=== PATIENT | male | born 1965 | race Caucasian/White ===

== ENCOUNTER 2017-11-13 18:05 | Emergency (ER) | payer SELFPAY ==
[~2017-11-13] VITALS: Ht 165.1 cm; Wt 61.2 kg
--- OUTSIDE RECORDS SUMMARY | 2017-11-13 18:08 | XMS REPORT ---
Author Author Admin, [place] Organization [facility] Address Unknown Phone Unavailable Allergies, Adverse Reactions, Alerts Allergy Name Reaction Description Start Date Severity Status Provider CODEINE SE: vomiting; itching Mild Active Carlo Carter [employer] Conditions or Problems Problem Name Problem Code Onset Date Status Entry Date Provider Comment Standard Description Annotate Hand pain, bilateral 729.5 Active Carlo Oswalds [employer] Pain in limb Cigarette smoker 305.1 Active Carlo Oswalds [employer] Tobacco use disorder 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 Carmen Phelan DO Unspecified secondary syphilis HIV infection 042 Active Carlo Carter [employer] Human immunodeficiency virus [HIV] disease HLA B5701 negative Screening for colon cancer ICD-V76.51 Inactive Carlo Carter [employer] Vaccination against influenza ICD-V04.81 Inactive Carlo Carter [employer] Furuncle ICD-680.9 Inactive Carlo Carter [employer] 2016 Vaccination for strep pneumonia with pneumovax ICD-V03.82 Inactive Carlo Carter [employer] Peripheral neuropathy ICD-356.9 Inactive Carlo Carter [employer] SCREENING EXAMINATION FOR VENEREAL DISEASE ICD-V74.5 Inactive Carlo Carter [employer] Vaccination for strep pneumonia with Prevnar 13 ICD-V03.82 02/09 Inactive Carlo Carter [employer] Vaccination for viral hepatitis A ICD-V05.3 Inactive Carlo Carter [employer] Oral ulcer ICD-528.9 Inactive Carlo Carter [employer] Screening for colon cancer V76.51 Resolved Carlo Carter [employer] Screening for malignant neoplasms of colon Vaccination against influenza V04.81 Resolved Carlo Carter [employer] Need for prophylactic vaccination and inoculation against influenza Furuncle 680.9 Resolved Carlo Carter [employer] Carbuncle and furuncle of unspecified site right posterior distal calf Vaccination for strep pneumonia with pneumovax V03.82 Resolved Carlo Carter [employer] Need for prophylactic vaccination against Streptococcus pneumoniae [pneumococcus] Peripheral neuropathy 356.9 Resolved Carlo Carter [employer] Unspecified hereditary and idiopathic peripheral neuropathy SCREENING EXAMINATION FOR VENEREAL DISEASE V74.5 Resolved 02/09 Carlo Carter [employer] Screening examination for venereal disease Vaccination for strep pneumonia with Prevnar 13 V03.82 Resolved Carlo Carter [employer] Need for prophylactic vaccination against Streptococcus pneumoniae [pneumococcus] Vaccination for viral hepatitis A V05.3 Resolved Carlo Carter [employer] Need for prophylactic vaccination and inoculation against viral hepatitis Oral ulcer 528.9 Resolved Carlo Carter [employer] Other and unspecified diseases of the oral soft tissues Medication List Medication Instructions Start Date Stop Date Generic Name NDC Status Provider Patient Instruction TRIUMEQ 600-50-300 MG ORAL TABLET Take one tablet by mouth once daily [id number] Active Carlo Carter [employer] Active BACTRIM DS 800-160 MG ORAL TABLET 1 tab by mouth twice a day for 1 week 08/15 BACTRIM DS 800-160 MG ORAL TABLET 231585 TRIMETHOPRIM- SULFAMETHOXAZOLE Inactive DOXYCYCLINE HYCLATE 100 MG ORAL CAPSULE 1 by mouth twice a day for 1 week DOXYCYCLINE HYCLATE 100 MG ORAL CAPSULE 7827029 DOXYCYCLINE HYCLATE Inactive NICOTINE 21-14-7 MG/24HR TRANSDERMAL KIT NICOTINE 21-14-7 MG/24HR TRANSDERMAL KIT 527213 NICOTINE Inactive GABAPENTIN 100 MG ORAL CAPSULE Take one capsule by mouth every eight hours GABAPENTIN 100 MG ORAL CAPSULE 711148 GABAPENTIN Inactive DOXYCYCLINE HYCLATE 100 MG ORAL CAPSULE 1 by mouth twice a day DOXYCYCLINE HYCLATE 100 MG ORAL CAPSULE 5482817 DOXYCYCLINE HYCLATE Inactive VALTREX 1 GM ORAL TABLET 1 by mouth 3 times a day for 7 days 2015 VALTREX 1 GM ORAL TABLET 917831 VALACYCLOVIR HCL Inactive BACTRIM DS 800-160 MG ORAL TABLET 1 tab by mouth twice a day for 1 week 08/15 TRIMETHOPRIM-SULFAMETHOXAZOLE 02930012152 No Longer Active Carlo Carter [employer] Active DOXYCYCLINE HYCLATE 100 MG ORAL CAPSULE 1 by mouth twice a day for 1 week DOXYCYCLINE HYCLATE 59235238435 No Longer Active Carlo Carter [employer] Active NICOTINE 21-14-7 MG/24HR TRANSDERMAL KIT NICOTINE 26525350019 No Longer Active Carlo Carter [employer] Active GABAPENTIN 100 MG ORAL CAPSULE Take one capsule by mouth every eight hours GABAPENTIN 06707865340 No Longer Active Carlo Carter [employer] Active DOXYCYCLINE HYCLATE 100 MG ORAL CAPSULE 1 by mouth twice a day DOXYCYCLINE HYCLATE 24978059920 No Longer Active Carmen Phelan DO Active VALTREX 1 GM ORAL TABLET 1 by mouth 3 times a day for 7 days 2015 VALACYCLOVIR HCL 76179784560 No Longer Active Carlo Carter [employer] Active Immunizations Vaccine Administration Date Value Standard Description influenza immunization (Flu Vax) has been administered given influenza virus vaccine, unspecified formulation hepatitis A immunization #2 given hepatitis A vaccine, unspecified formulation pneumococcal immunization administered given pneumococcal polysaccharide vaccine, 23 valent hepatitis A immunization #1 given hepatitis A vaccine, unspecified formulation PEDIATRIC PNEUMOCOCCAL VACCINE ([id number]) #1 given pneumococcal conjugate vaccine, 13 valent Vital Signs Date Name Value Unit Range Description blood pressure, diastolic 80 mm[Hg] BP zamudio blood pressure, systolic 130 mm[Hg] BP sys height E&M 66 [in_us] Bdy height pulse rate E&M 76 /min Heart rate respiratory rate E&M 16 /min Resp rate temperature E&M 97.8 [degF] Body temperature weight E&M 133 [lb_av] Weight Measured blood pressure, diastolic 86 mm[Hg] BP zamudio blood pressure, systolic 124 mm[Hg] BP sys height E&M 66 [in_us] Bdy height pulse rate E&M 78 /min Heart rate respiratory rate E&M 16 /min Resp rate temperature E&M 98.6 [degF] Body temperature weight E&M 133.13 [lb_av] Weight Measured blood pressure, diastolic 89 mm[Hg] BP zamudio blood pressure, systolic 138 mm[Hg] BP sys height E&M 66 [in_us] Bdy height pulse rate E&M 103 /min Heart rate temperature E&M 98.3 [degF] Body temperature weight E&M 135 [lb_av] Weight Measured Diagnostic Results Date Name Value Unit Range Description Lab Report: CD4/CD8 Ratio Profile, Comp. Metabolic Panel (14), Lipid Beckman ... - Serology hepatitis C antibody, serum <0.1 0.0-0.9 Lab Report: CD4/CD8 Ratio Profile, Comp. Metabolic Panel (14), RNA, Real ... - Hematology lymphocyte count, blood, automated 2.2 X10E3/UL 10*3/mm3 0.7- 3.1 Lab Report: COMPREHENSIVE METABOLIC PANEL, LYMPHOCYTE SUBSET PANEL 4, CB ... - Hematology mean platelet volume 9.1 fL 7.5-12.5 Lab Report: CD4/CD8 Ratio Profile, Comp. Metabolic Panel (14), RNA, Real ... - Chemistry urea nitrogen, blood 17 mg/dL 6-24 Lab Report: CD4/CD8 Ratio Profile, Comp. Metabolic Panel (14), RNA, Real ... - Hematology T-helper cells (CD4) as percent of blood lymphocytes 48.0 % 30.8 -58.5 Lab Report: CD4/CD8 Ratio Profile, Comp. Metabolic Panel (14), RNA, Real ... - Serology HIV-1RNA, serum, by PCR, quantitative 40 {Copies}/mL Lab Report: CD4/CD8 Ratio Profile, Comp. Metabolic Panel (14), RNA, Real ... - Chemistry creatinine, serum 1.05 mg/dL 0.76-1.27 chloride, serum 100 mmol/L 96-106 Lab Report: CD4/CD8 Ratio Profile, Comp. Metabolic Panel (14), RNA, Real ... - Hematology mean corpuscular volume, RBC 88 fL 79-97 Lab Report: COMPREHENSIVE METABOLIC PANEL, LYMPHOCYTE SUBSET PANEL 4, CB ... - Chemistry lymphocytes, absolute 2142 CELLS/UL 10*3/uL 850-3900 Lab Report: CD4/CD8 Ratio Profile, Comp. Metabolic Panel (14), Lipid Beckman ... - Chemistry triglyceride, serum, fasting 142 mg/dL 0-149 Lab Report: CD4/CD8 Ratio Profile, Comp. Metabolic Panel (14), RNA, Real ... - Hematology erythrocyte (RBC) count 4.39 X10E6/UL 10*6/mm3 4.14-5.80 Lab Report: CD4/CD8 Ratio Profile, Comp. Metabolic Panel (14), RNA, Real ... - Chemistry Estimated Glomerular Filtration Rate (calc) 82 mL/min/1.73m2 > 59 Lab Report: COMPREHENSIVE METABOLIC PANEL, LYMPHOCYTE SUBSET PANEL 4, CB ... - Chemistry globulins, serum, total 2.3 G/DL (CALC) g/dL 1.9-3.7 Lab Report: CD4/CD8 Ratio Profile, Comp. Metabolic Panel (14), RNA, Real ... - Hematology platelet count 152 X10E3/UL 10*3/mm3 150-379 Lab Report: CD4/CD8 Ratio Profile, Comp. Metabolic Panel (14), Lipid Beckman ... - Serology HIV-1/HIV-2 Ab, serum Reactive Non Reactive Lab Report: CD4/CD8 Ratio Profile, Comp. Metabolic Panel (14), RNA, Real ... - Hematology red blood cell distribution width 14.5 % 12.3-15.4 Lab Report: CD4/CD8 Ratio Profile, Comp. Metabolic Panel (14), RNA, Real ... - Chemistry protein, total, serum 6.7 g/dL 6.0-8.5 Lab Report: CD4/CD8 Ratio Profile, Comp. Metabolic Panel (14), RNA, Real ... - Lab Treponema pallidum antibodies, by particle agglutination Positive Negative Lab Report: LIPID PANEL, HDL CHOLESTEROL, TRIGLYCERIDES, LDL-CHOLESTEROL ... - Chemistry cholesterol, non-HDL, total 100 MG/DL (CALC) mg/dL Lab Report: CD4/CD8 Ratio Profile, Comp. Metabolic Panel (14), Lipid Beckman ... - Chemistry HDL cholesterol, serum 64 mg/dL >39 Lab Report: CD4/CD8 Ratio Profile, Comp. Metabolic Panel (14), Lipid Beckman ... - Serology hepatitis A antibody, total Negative Negative Lab Report: CD4/CD8 Ratio Profile, Comp. Metabolic Panel (14), RNA, Real ... - Chemistry albumin/globulin ratio, serum 2.4 1.2-2.2 Lab Report: CD4/CD8 Ratio Profile, Comp. Metabolic Panel (14), RNA, Real ... - Hematology eosinophils as percent of blood leukocytes 5 % Not Estab. Lab Report: CD4/CD8 Ratio Profile, Comp. Metabolic Panel (14), RNA, Real ... - Chemistry Absolute Neutrophils 1.9 X10E3/UL 10*3/uL 1.4-7.0 Lab Report: CD4/CD8 Ratio Profile, Comp. Metabolic Panel (14), RNA, Real ... - Hematology basophil count, absolute 0.1 x10E3/uL 0.0-0.2 Lab Report: CD4/CD8 Ratio Profile, Comp. Metabolic Panel (14), Lipid Beckman ... - Chemistry hepatitis B surface antigen Negative Negative Lab Report: CD4/CD8 Ratio Profile, Comp. Metabolic Panel (14), RNA, Real ... - Chemistry alanine aminotransferase (SGPT), serum 17 U/L 0-44 Lab Report: CD4/CD8 Ratio Profile, Comp. Metabolic Panel (14), Lipid Beckman ... - Chemistry LDL cholesterol, serum 95 mg/dL 0-99 Lab Report: CD4/CD8 Ratio Profile, Comp. Metabolic Panel (14), RNA, Real ... - Hematology monocytes as percent of blood leukocytes 14 % Not Estab. Lab Report: COMPREHENSIVE METABOLIC PANEL, LYMPHOCYTE SUBSET PANEL 4, CB ... - Hematology eosinophils as percent of blood leukocytes 2.8 % Lab Report: CD4/CD8 Ratio Profile, Comp. Metabolic Panel (14), RNA, Real ... - Chemistry CD4/CD8 ratio 1.46 0.92-3.72 Lab Report: CD4/CD8 Ratio Profile, Comp. Metabolic Panel (14), Lipid Beckman ... - Chemistry cholesterol, serum 187 mg/dL 100-199 Lab Report: CD4/CD8 Ratio Profile, Comp. Metabolic Panel (14), RNA, Real ... - Hematology mean corpuscular hemoglobin concentration, RBC 34.6 G/DL % 31.5- 35.7 hemoglobin, blood 13.3 g/dL 13.0-17.7 leukocyte count, blood 5.1 X10E3/UL 10*3/mm3 3.4-10.8 Lab Report: COMPREHENSIVE METABOLIC PANEL, LYMPHOCYTE SUBSET PANEL 4, CB ... - Chemistry Absolute Neutrophil count 5742 {Cells}/uL 4090-5605 Lab Report: HLA B*5701 TYPING, [id number] DEHYDROGENASE, QUANT ... - Hematology Quantiferon Gold TB blood test for tuberculosis screening TNP Lab Report: CD4/CD8 Ratio Profile, Comp. Metabolic Panel (14), RNA, Real ... - Hematology hematocrit, blood 38.4 % 37.5-51.0 T-suppressor cells (CD8) as percent of blood lymphocytes 32.9 % 12.0-35.5 Lab Report: CD4/CD8 Ratio Profile, Comp. Metabolic Panel (14), RNA, Real ... - Chemistry globulin, serum 2.0 1.5-4.5 Lab Report: COMPREHENSIVE METABOLIC PANEL, LYMPHOCYTE SUBSET PANEL 4, CB ... - Serology Treponema pallidum Ab, serum REACTIVE NON-REACTIVE Lab Report: CD4/CD8 Ratio Profile, Comp. Metabolic Panel (14), RNA, Real ... - Chemistry albumin, serum 4.7 g/dL 3.5-5.5 Lab Report: CD4/CD8 Ratio Profile, Comp. Metabolic Panel (14), Lipid Beckman ... - Chemistry very low density lipoproteins 28 mg/dL 5-40 Lab Report: CD4/CD8 Ratio Profile, Comp. Metabolic Panel (14), RNA, Real ... - Chemistry calcium, serum 9.7 mg/dL 8.7-10.2 Lab Report: CD4/CD8 Ratio Profile, Comp. Metabolic Panel (14), RNA, Real ... - Hematology basophils as percent of blood leukocytes 1 % Not Estab. 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 Metabolic Panel (14), RNA, Real ... - Chemistry immature granulocytes, percentage of total cells, blood 0 % Not Estab. urea nitrogen/creatinine ratio, serum 16 9-20 Lab Report: CD4/CD8 Ratio Profile, Comp. Metabolic Panel (14), RNA, Real ... - Genetics/fertility eGFR if 95 mL/min/1.73m2 >59 Lab Report: CD4/CD8 Ratio Profile, Comp. Metabolic Panel (14), RNA, Real ... - Hematology lymphocytes as percent of blood leukocytes 43 % Not Estab. Lab Report: CD4/CD8 Ratio Profile, Comp. Metabolic Panel (14), RNA, Real ... - Chemistry carbon dioxide, venous blood 27 mmol/L 18-29 Lab Report: CD4/CD8 Ratio Profile, Comp. Metabolic Panel (14), RNA, Real ... - Serology rapid plasma reagin antibody, serum 1:8 NonRea<1:1 Lab Report: CHLAMYDIA/N. GONORRHOEAE RNA, TMA, RECTAL, CHLAMYDIA/N. GONO ... - Lab chlamydia DNA probe NOT DETECTED Lab Report: CHLAMYDIA/N. GONORRHOEAE RNA, TMA, RECTAL, CHLAMYDIA/N. GONO ... - Microbiology Neisseria gonorrhoeae DNA probe NOT DETECTED Lab Report: CD4/CD8 Ratio Profile, Comp. Metabolic Panel (14), RNA, Real ... - Chemistry sodium, serum 142 mmol/L 134-144 Lab Report: CD4/CD8 Ratio Profile, Comp. Metabolic Panel (14), Lipid Beckman ... - Serology hepatitis B core antibody, total Positive Negative Lab Report: CD4/CD8 Ratio Profile, Comp. Metabolic Panel (14), RNA, Real ... - Chemistry alkaline phosphatase, serum 49 U/L 39-117 Lab Report: COMPREHENSIVE METABOLIC PANEL, LYMPHOCYTE SUBSET PANEL 4, CB ... - Hematology Absolute Monocyte count 828 {Cells}/uL 200-950 Lab Report: CD4/CD8 Ratio Profile, Comp. Metabolic Panel (14), RNA, Real ... - Hematology Eosinophil Absolute Count 0.3 X10E3/UL 10*3/uL 0.0-0.4 T-helper cells (CD4) count 1056 /UL uL 359-1519 mean corpuscular hemoglobin, RBC 30.3 pg 26.6-33.0 Lab Report: CD4/CD8 Ratio Profile, Comp. Metabolic Panel (14), RNA, Real ... - Chemistry bilirubin, serum, total 0.3 mg/dL 0.0-1.2 Lab Report: CD4/CD8 Ratio Profile, Comp. Metabolic Panel (14), RNA, Real ... - Hematology neutrophils as percent of blood leukocytes 37 % Not Estab. Lab Report: HLA B*5701 TYPING, [id number] DEHYDROGENASE, QUANT ... - Serology human leukocyte antigen B57 Negative Lab Report: HIV 1 RNA, QUANTITATIVE REAL TIME PCR - Chemistry HIV-1 RNA (log 10) 1.38 Log copies/mL <1.30 Lab Report: CD4/CD8 Ratio Profile, Comp. Metabolic Panel (14), RNA, Real ... - Chemistry blood glucose, random 82 mg/dL 65-99 potassium, serum 4.2 mmol/L 3.5-5.2 Lab Report: CD4/CD8 Ratio Profile, Comp. Metabolic Panel (14), Lipid Beckman ... - Serology hepatitis B surface antibody Reactive Lab Report: LIPID PANEL, HDL CHOLESTEROL, TRIGLYCERIDES, LDL-CHOLESTEROL ... - Chemistry cholesterol/HDL ratio, serum, percent 2.8 (calc) < OR=5.0 Lab Report: CD4/CD8 Ratio Profile, Comp. Metabolic Panel (14), Lipid Beckman ... - Serology toxoplasma gondii antibody, IgG <3.0 0.0-7.1 Lab Report: COMPREHENSIVE METABOLIC PANEL, LYMPHOCYTE SUBSET PANEL 4, CB ... - Hematology Absolute Eosinophil count 252 {Cells}/uL 15-500 Lab Report: CD4/CD8 Ratio Profile, Comp. Metabolic Panel (14), RNA, Real ... - Chemistry aspartate aminotransferase (SGOT), serum 21 U/L 0-40 absolute CD8 [id number] Encounters Date Encounter Provider Code Facility 13:39:40 SPECIFICATION WRITER Est Patient Exp Problem - 90449 Carlo Oswalds [employer] CPT-94978 [facility] 12:39:58 CDT Est Patient Exp Problem - 69168 Carlo Velazquezmons [employer] CPT-71083 [facility] 17:00:26 SPECIFICATION WRITER Est Patient Exp Problem - 85286 Carlo Velazquezmons [employer] CPT-84725 [facility] 10:50:03 SPECIFICATION WRITER Ofc Vst, Est Level III Nito Silva MD CPT-80636 [facility] 12:12:14 CDT Est Patient Exp Problem - 83289 Carlo Velazquezmons [employer] CPT-66206 [facility] 14:14:04 CDT New Patient Detailed - 71890 Carlo Oswalds [employer] CPT- 93527 [facility] 12:38:58 CDT Ofc Vst, New Level II Carmen Phelan DO CPT-29849 [facility] Procedures Code Procedure Name Date Entry Date Standard Description CPT-48629 Xray - Hand - InHouse 14:39:32 SPECIFICATION WRITER CPT-87069 Xray - Hand - InHouse 14:40:25 SPECIFICATION WRITER CPT-16207 INFLUENZA VACCINE QUADRIVALENT 3 YRS PLUS IM 12:05:32 CDT CPT-51218 Admin of Vaccine - Injection - 1 12:05:32 CDT CPT-20751 Hepatitis A - Adult 16:34:55 SPECIFICATION WRITER CPT-25245 Admin of Vaccine - Injection - 1 16:34:55 SPECIFICATION WRITER CPT-03047 Pneumovax Vaccine PPSV23 10:20:52 CDT CPT-65025 Admin of Vaccine - Injection - 1 10:20:52 CDT CPT-61584 Hepatitis A - Adult 15:09:38 CDT CPT-37954 Admin of Vaccine - Injection - Each Add'l 15:09:38 CDT CPT-10044 Prevnar (PCV13) IM 15:09:38 CDT CPT-96761 Admin of Vaccine - Injection - 1 15:09:38 CDT CPT-38127 Handling of specimen for transfer 14:25:37 CDT CPT-29199 Venipuncture 14:25:37 CDT
[2017-11-13] MEDS ORDERED: CEPHALEXIN500 MG PO (18:42)
[2017-11-13] MEDS ORDERED: CLINDAMYCIN PHOS 600 MG/ 4 ML VIAL IM ONE (18:45)
== END 2017-11-13 18:55 | disposition home or self-care (01) ==
LOC: FSED 18:05
DX: L02.31 Cutaneous abscess of buttock (principal); F17.210 Nicotine dependence, cigarettes, uncomplicated
CPT/HCPCS: 99283